=== PATIENT | female | born 1945 | race Caucasian/White ===

== ENCOUNTER → 2017-10-05 | Outpatient (CLI) | payer MEDICARE ==
[~2017-10-05] MED LIST: AUGMENTIN 875-1 EACH PO; CALCIUM500 M1 PO; FOLIC ACID1 MG PO; HYDROCHLOROTHIA25 M2 PO; HYDROCODON-ACE1 EAC8 PO; LIPITOR40 MG PO; LISINOPRIL20 MG PO; METHOTREXATE 22.5 MG PO; MULTIVITAMINS1 EAC7 PO; NORCO 5-325 TA1 EACH PO; NORVASC5 MG PO; OMEPRAZOLE40 MG PO; PERCOCET 5-3251 EACH PO; PRAMIPEXOLE DI0.5 MG PO; [UNRECOGNIZED DRUG - OTHER]
== END ==
LOC: M.WC 00:04
DX: T81.31XD Disruption of external operation (surgical) wound, not elsewhere classified, subsequent encounter (principal); M06.9 Rheumatoid arthritis, unspecified; K21.9 Gastro-esophageal reflux disease without esophagitis; E78.00 Pure hypercholesterolemia, unspecified; I10 Essential (primary) hypertension; M85.80 Other specified disorders of bone density and structure, unspecified site; Z96.651 Presence of right artificial knee joint; Y83.8 Other surgical procedures as the cause of abnormal reaction of the patient, or of later complication, without mention of misadventure at the time of the procedure

== ENCOUNTER → 2017-10-08 | Outpatient (CLI) | payer MEDICARE | LOC: M.WC 02:21 | DX: T81.31XD Disruption of external operation (surgical) wound, not elsewhere classified, subsequent encounter (principal); M06.9 Rheumatoid arthritis, unspecified; K21.9 Gastro-esophageal reflux disease without esophagitis; E78.00 Pure hypercholesterolemia, unspecified; I10 Essential (primary) hypertension; Z90.710 Acquired absence of both cervix and uterus; Y83.8 Other surgical procedures as the cause of abnormal reaction of the patient, or of later complication, without mention of misadventure at the time of the procedure ==

== ENCOUNTER → 2017-10-12 | Outpatient (CLI) | payer MEDICARE | LOC: M.WC 01:51 | DX: T81.31XD Disruption of external operation (surgical) wound, not elsewhere classified, subsequent encounter (principal); M06.9 Rheumatoid arthritis, unspecified; K21.9 Gastro-esophageal reflux disease without esophagitis; E78.00 Pure hypercholesterolemia, unspecified; I10 Essential (primary) hypertension; Z90.710 Acquired absence of both cervix and uterus; Y83.8 Other surgical procedures as the cause of abnormal reaction of the patient, or of later complication, without mention of misadventure at the time of the procedure ==

== ENCOUNTER → 2017-10-15 | Outpatient (CLI) | payer MEDICARE | LOC: M.WC 01:20 | DX: T81.31XD Disruption of external operation (surgical) wound, not elsewhere classified, subsequent encounter (principal); I10 Essential (primary) hypertension; E78.00 Pure hypercholesterolemia, unspecified; M06.9 Rheumatoid arthritis, unspecified; K21.9 Gastro-esophageal reflux disease without esophagitis; Z96.651 Presence of right artificial knee joint; Z90.710 Acquired absence of both cervix and uterus; Y83.8 Other surgical procedures as the cause of abnormal reaction of the patient, or of later complication, without mention of misadventure at the time of the procedure ==

== ENCOUNTER → 2017-10-19 | Outpatient (CLI) | payer MEDICARE | LOC: M.WC 01:32 | DX: T81.31XD Disruption of external operation (surgical) wound, not elsewhere classified, subsequent encounter (principal); I10 Essential (primary) hypertension; E78.00 Pure hypercholesterolemia, unspecified; K21.9 Gastro-esophageal reflux disease without esophagitis; M06.9 Rheumatoid arthritis, unspecified; Z96.651 Presence of right artificial knee joint; Z90.710 Acquired absence of both cervix and uterus; Y83.8 Other surgical procedures as the cause of abnormal reaction of the patient, or of later complication, without mention of misadventure at the time of the procedure ==

== ENCOUNTER → 2017-10-22 | Outpatient (CLI) | payer MEDICARE | LOC: M.WC 01:35 | DX: T81.31XD Disruption of external operation (surgical) wound, not elsewhere classified, subsequent encounter (principal); M06.9 Rheumatoid arthritis, unspecified; K21.9 Gastro-esophageal reflux disease without esophagitis; E78.00 Pure hypercholesterolemia, unspecified; I10 Essential (primary) hypertension; M81.0 Age-related osteoporosis without current pathological fracture; Z96.651 Presence of right artificial knee joint; Z90.710 Acquired absence of both cervix and uterus; Y83.8 Other surgical procedures as the cause of abnormal reaction of the patient, or of later complication, without mention of misadventure at the time of the procedure ==

== ENCOUNTER → 2017-10-26 | Outpatient (CLI) | payer MEDICARE | LOC: M.WC 01:55 | DX: T81.31XD Disruption of external operation (surgical) wound, not elsewhere classified, subsequent encounter (principal); I10 Essential (primary) hypertension; E78.00 Pure hypercholesterolemia, unspecified; M06.9 Rheumatoid arthritis, unspecified; K21.9 Gastro-esophageal reflux disease without esophagitis; Z96.651 Presence of right artificial knee joint; Z90.710 Acquired absence of both cervix and uterus; Y83.8 Other surgical procedures as the cause of abnormal reaction of the patient, or of later complication, without mention of misadventure at the time of the procedure ==

== ENCOUNTER → 2017-10-29 | Outpatient (CLI) | payer MEDICARE | LOC: M.WC 01:51 | DX: T81.31XD Disruption of external operation (surgical) wound, not elsewhere classified, subsequent encounter (principal); I10 Essential (primary) hypertension; E78.00 Pure hypercholesterolemia, unspecified; N18.3 Chronic kidney disease, stage 3 (moderate); M06.9 Rheumatoid arthritis, unspecified; K21.9 Gastro-esophageal reflux disease without esophagitis; Z96.651 Presence of right artificial knee joint; Z90.710 Acquired absence of both cervix and uterus; Y83.8 Other surgical procedures as the cause of abnormal reaction of the patient, or of later complication, without mention of misadventure at the time of the procedure ==

== ENCOUNTER → 2017-11-02 | Outpatient (CLI) | payer MEDICARE | LOC: M.WC 01:43 | DX: T81.31XD Disruption of external operation (surgical) wound, not elsewhere classified, subsequent encounter (principal); M06.9 Rheumatoid arthritis, unspecified; K21.9 Gastro-esophageal reflux disease without esophagitis; E78.00 Pure hypercholesterolemia, unspecified; I10 Essential (primary) hypertension; M85.80 Other specified disorders of bone density and structure, unspecified site; Z96.651 Presence of right artificial knee joint; Z90.710 Acquired absence of both cervix and uterus; Y83.8 Other surgical procedures as the cause of abnormal reaction of the patient, or of later complication, without mention of misadventure at the time of the procedure ==

== ENCOUNTER → 2017-11-05 | Outpatient (CLI) | payer MEDICARE | LOC: M.WC 01:44 | DX: T81.31XD Disruption of external operation (surgical) wound, not elsewhere classified, subsequent encounter (principal); M06.9 Rheumatoid arthritis, unspecified; K21.9 Gastro-esophageal reflux disease without esophagitis; E78.00 Pure hypercholesterolemia, unspecified; I10 Essential (primary) hypertension; M85.80 Other specified disorders of bone density and structure, unspecified site; Z96.651 Presence of right artificial knee joint; Z90.710 Acquired absence of both cervix and uterus; Y83.8 Other surgical procedures as the cause of abnormal reaction of the patient, or of later complication, without mention of misadventure at the time of the procedure ==

== ENCOUNTER → 2017-11-09 | Outpatient (CLI) | payer MEDICARE | LOC: M.WC 05:24 | DX: T81.31XD Disruption of external operation (surgical) wound, not elsewhere classified, subsequent encounter (principal); M06.9 Rheumatoid arthritis, unspecified; K21.9 Gastro-esophageal reflux disease without esophagitis; I10 Essential (primary) hypertension; E78.00 Pure hypercholesterolemia, unspecified; Z90.710 Acquired absence of both cervix and uterus; Y83.8 Other surgical procedures as the cause of abnormal reaction of the patient, or of later complication, without mention of misadventure at the time of the procedure ==

== ENCOUNTER 2017-11-12 13:54 | Emergency (ER) | payer MEDICARE ==
[~2017-11-12] VITALS: Ht 162.6 cm; Wt 77.1 kg
[~2017-11-12 13:54] MED LIST changes: -AUGMENTIN 875-1 EACH PO; -NORCO 5-325 TA1 EACH PO; -PERCOCET 5-3251 EACH PO
[2017-11-12] MEDS ORDERED: PERCOCET 5-3251 EACH PO (14:31)
[2017-11-12 14:42] VITALS: BP 139/55
== END 2017-11-12 14:43 | disposition home or self-care (01) ==
LOC: M.ERS 13:54
DX: M47.817 Spondylosis without myelopathy or radiculopathy, lumbosacral region (principal); Z90.710 Acquired absence of both cervix and uterus; Z96.651 Presence of right artificial knee joint

== ENCOUNTER → 2017-11-12 | Outpatient (CLI) | payer MEDICARE | LOC: M.WC 01:31 | DX: T81.31XD Disruption of external operation (surgical) wound, not elsewhere classified, subsequent encounter (principal); I10 Essential (primary) hypertension; E78.00 Pure hypercholesterolemia, unspecified; M06.9 Rheumatoid arthritis, unspecified; K21.9 Gastro-esophageal reflux disease without esophagitis; Z96.651 Presence of right artificial knee joint; Z90.710 Acquired absence of both cervix and uterus; Y83.8 Other surgical procedures as the cause of abnormal reaction of the patient, or of later complication, without mention of misadventure at the time of the procedure ==

== ENCOUNTER → 2017-11-16 | Outpatient (CLI) | payer MEDICARE ==
[~2017-11-16] MED LIST changes: +AUGMENTIN 875-1 EACH PO; +NORCO 5-325 TA1 EACH PO; +PERCOCET 5-3251 EACH PO
== END ==
LOC: M.WC 01:20
DX: T81.31XD Disruption of external operation (surgical) wound, not elsewhere classified, subsequent encounter (principal); M06.9 Rheumatoid arthritis, unspecified; K21.9 Gastro-esophageal reflux disease without esophagitis; E78.00 Pure hypercholesterolemia, unspecified; I10 Essential (primary) hypertension; M85.80 Other specified disorders of bone density and structure, unspecified site; Z96.651 Presence of right artificial knee joint; Z90.710 Acquired absence of both cervix and uterus; Y83.8 Other surgical procedures as the cause of abnormal reaction of the patient, or of later complication, without mention of misadventure at the time of the procedure

== ENCOUNTER → 2017-11-19 | Outpatient (CLI) | payer MEDICARE | LOC: M.WC 00:56 | DX: T81.31XD Disruption of external operation (surgical) wound, not elsewhere classified, subsequent encounter (principal); I10 Essential (primary) hypertension; E78.00 Pure hypercholesterolemia, unspecified; K21.9 Gastro-esophageal reflux disease without esophagitis; M06.9 Rheumatoid arthritis, unspecified; Z96.651 Presence of right artificial knee joint; Z90.710 Acquired absence of both cervix and uterus; Y83.8 Other surgical procedures as the cause of abnormal reaction of the patient, or of later complication, without mention of misadventure at the time of the procedure ==

== ENCOUNTER → 2017-11-23 | Outpatient (CLI) | payer MEDICARE | LOC: M.WC 03:32 | DX: T81.31XD Disruption of external operation (surgical) wound, not elsewhere classified, subsequent encounter (principal); K21.9 Gastro-esophageal reflux disease without esophagitis; E78.00 Pure hypercholesterolemia, unspecified; I10 Essential (primary) hypertension; M06.9 Rheumatoid arthritis, unspecified; Z90.710 Acquired absence of both cervix and uterus; Y83.8 Other surgical procedures as the cause of abnormal reaction of the patient, or of later complication, without mention of misadventure at the time of the procedure ==

== ENCOUNTER → 2017-11-26 | Outpatient (CLI) | payer MEDICARE | LOC: M.WC 00:41 | DX: T81.31XD Disruption of external operation (surgical) wound, not elsewhere classified, subsequent encounter (principal); I10 Essential (primary) hypertension; E78.00 Pure hypercholesterolemia, unspecified; K21.9 Gastro-esophageal reflux disease without esophagitis; M06.9 Rheumatoid arthritis, unspecified; Z96.651 Presence of right artificial knee joint; Z90.710 Acquired absence of both cervix and uterus; Y83.8 Other surgical procedures as the cause of abnormal reaction of the patient, or of later complication, without mention of misadventure at the time of the procedure ==

== ENCOUNTER → 2017-11-30 | Outpatient (CLI) | payer MEDICARE | LOC: M.WC 02:44 | DX: T81.31XD Disruption of external operation (surgical) wound, not elsewhere classified, subsequent encounter (principal); I10 Essential (primary) hypertension; E78.00 Pure hypercholesterolemia, unspecified; K21.9 Gastro-esophageal reflux disease without esophagitis; M06.9 Rheumatoid arthritis, unspecified; Z96.651 Presence of right artificial knee joint; Z90.710 Acquired absence of both cervix and uterus; Y83.8 Other surgical procedures as the cause of abnormal reaction of the patient, or of later complication, without mention of misadventure at the time of the procedure ==

== ENCOUNTER → 2017-12-01 | Outpatient (CLI) | payer MEDICARE | LOC: M.WC 10:00 | DX: T81.31XD Disruption of external operation (surgical) wound, not elsewhere classified, subsequent encounter (principal); M06.9 Rheumatoid arthritis, unspecified; I10 Essential (primary) hypertension; E78.00 Pure hypercholesterolemia, unspecified; K21.9 Gastro-esophageal reflux disease without esophagitis; Z96.651 Presence of right artificial knee joint; Z90.710 Acquired absence of both cervix and uterus; Y83.8 Other surgical procedures as the cause of abnormal reaction of the patient, or of later complication, without mention of misadventure at the time of the procedure ==

== ENCOUNTER → 2017-12-03 | Outpatient (CLI) | payer MEDICARE | LOC: M.WC 01:34 | DX: T81.31XD Disruption of external operation (surgical) wound, not elsewhere classified, subsequent encounter (principal); I10 Essential (primary) hypertension; K21.9 Gastro-esophageal reflux disease without esophagitis; E78.00 Pure hypercholesterolemia, unspecified; M06.9 Rheumatoid arthritis, unspecified; Z96.651 Presence of right artificial knee joint; Z90.710 Acquired absence of both cervix and uterus; Y83.8 Other surgical procedures as the cause of abnormal reaction of the patient, or of later complication, without mention of misadventure at the time of the procedure ==

== ENCOUNTER → 2017-12-07 | Outpatient (CLI) | payer MEDICARE | LOC: M.WC 02:24 | DX: T81.31XD Disruption of external operation (surgical) wound, not elsewhere classified, subsequent encounter (principal); M06.9 Rheumatoid arthritis, unspecified; K21.9 Gastro-esophageal reflux disease without esophagitis; E78.00 Pure hypercholesterolemia, unspecified; I10 Essential (primary) hypertension; Z90.710 Acquired absence of both cervix and uterus; Y83.8 Other surgical procedures as the cause of abnormal reaction of the patient, or of later complication, without mention of misadventure at the time of the procedure ==

== ENCOUNTER → 2017-12-10 | Outpatient (CLI) | payer MEDICARE | LOC: M.WC 01:50 | DX: T81.31XD Disruption of external operation (surgical) wound, not elsewhere classified, subsequent encounter (principal); I12.9 Hypertensive chronic kidney disease with stage 1 through stage 4 chronic kidney disease, or unspecified chronic kidney disease; N18.3 Chronic kidney disease, stage 3 (moderate); M06.9 Rheumatoid arthritis, unspecified; K21.9 Gastro-esophageal reflux disease without esophagitis; E78.00 Pure hypercholesterolemia, unspecified; Z90.710 Acquired absence of both cervix and uterus; Z96.652 Presence of left artificial knee joint; Y83.8 Other surgical procedures as the cause of abnormal reaction of the patient, or of later complication, without mention of misadventure at the time of the procedure ==

== ENCOUNTER → 2017-12-14 | Outpatient (CLI) | payer MEDICARE | LOC: M.WC 02:53 | DX: T81.31XD Disruption of external operation (surgical) wound, not elsewhere classified, subsequent encounter (principal); M06.9 Rheumatoid arthritis, unspecified; K21.9 Gastro-esophageal reflux disease without esophagitis; E78.00 Pure hypercholesterolemia, unspecified; I10 Essential (primary) hypertension; Z90.710 Acquired absence of both cervix and uterus; Y83.8 Other surgical procedures as the cause of abnormal reaction of the patient, or of later complication, without mention of misadventure at the time of the procedure ==

== ENCOUNTER → 2017-12-17 | Outpatient (CLI) | payer MEDICARE | LOC: M.WC 01:34 | DX: T81.31XD Disruption of external operation (surgical) wound, not elsewhere classified, subsequent encounter (principal); M06.9 Rheumatoid arthritis, unspecified; K21.9 Gastro-esophageal reflux disease without esophagitis; E78.00 Pure hypercholesterolemia, unspecified; I10 Essential (primary) hypertension; Z96.651 Presence of right artificial knee joint; Z90.710 Acquired absence of both cervix and uterus; Y83.8 Other surgical procedures as the cause of abnormal reaction of the patient, or of later complication, without mention of misadventure at the time of the procedure ==

== ENCOUNTER → 2017-12-21 | Outpatient (CLI) | payer MEDICARE | LOC: M.WC 00:29 | DX: T81.31XD Disruption of external operation (surgical) wound, not elsewhere classified, subsequent encounter (principal); K21.9 Gastro-esophageal reflux disease without esophagitis; E78.00 Pure hypercholesterolemia, unspecified; M06.9 Rheumatoid arthritis, unspecified; I10 Essential (primary) hypertension; Z90.710 Acquired absence of both cervix and uterus; Y83.8 Other surgical procedures as the cause of abnormal reaction of the patient, or of later complication, without mention of misadventure at the time of the procedure ==

== ENCOUNTER → 2017-12-28 | Outpatient (CLI) | payer MEDICARE | LOC: M.WC 01:40 | DX: T81.31XD Disruption of external operation (surgical) wound, not elsewhere classified, subsequent encounter (principal); I10 Essential (primary) hypertension; M06.9 Rheumatoid arthritis, unspecified; K21.9 Gastro-esophageal reflux disease without esophagitis; E78.00 Pure hypercholesterolemia, unspecified; Z90.710 Acquired absence of both cervix and uterus; Z96.652 Presence of left artificial knee joint; Y83.8 Other surgical procedures as the cause of abnormal reaction of the patient, or of later complication, without mention of misadventure at the time of the procedure ==

== ENCOUNTER → 2018-01-11 | Outpatient (CLI) | payer MEDICARE | LOC: M.WC 03:07 | DX: T81.31XD Disruption of external operation (surgical) wound, not elsewhere classified, subsequent encounter (principal); M06.9 Rheumatoid arthritis, unspecified; K21.9 Gastro-esophageal reflux disease without esophagitis; E78.00 Pure hypercholesterolemia, unspecified; I10 Essential (primary) hypertension; Z90.710 Acquired absence of both cervix and uterus; Y83.8 Other surgical procedures as the cause of abnormal reaction of the patient, or of later complication, without mention of misadventure at the time of the procedure ==

== ENCOUNTER → 2018-01-18 | Outpatient (CLI) | payer MEDICARE | LOC: M.WC 01:31 | DX: T81.31XD Disruption of external operation (surgical) wound, not elsewhere classified, subsequent encounter (principal); I10 Essential (primary) hypertension; E78.00 Pure hypercholesterolemia, unspecified; M06.9 Rheumatoid arthritis, unspecified; K21.9 Gastro-esophageal reflux disease without esophagitis; Z96.651 Presence of right artificial knee joint; Z90.710 Acquired absence of both cervix and uterus; Y83.8 Other surgical procedures as the cause of abnormal reaction of the patient, or of later complication, without mention of misadventure at the time of the procedure ==

== ENCOUNTER → 2018-01-25 | Outpatient (CLI) | payer MEDICARE | LOC: M.WC 02:08 | DX: T81.31XD Disruption of external operation (surgical) wound, not elsewhere classified, subsequent encounter (principal); M06.9 Rheumatoid arthritis, unspecified; K21.9 Gastro-esophageal reflux disease without esophagitis; E78.00 Pure hypercholesterolemia, unspecified; I10 Essential (primary) hypertension; Z90.710 Acquired absence of both cervix and uterus; Y83.8 Other surgical procedures as the cause of abnormal reaction of the patient, or of later complication, without mention of misadventure at the time of the procedure ==

== ENCOUNTER → 2018-01-31 | Outpatient (CLI) | payer MEDICARE | LOC: M.MRI 12:54 | DX: M47.895 Other spondylosis, thoracolumbar region (principal); M47.896 Other spondylosis, lumbar region; M48.04 Spinal stenosis, thoracic region; M48.061 Spinal stenosis, lumbar region without neurogenic claudication ==

== ENCOUNTER → 2018-02-01 | Outpatient (CLI) | payer MEDICARE | LOC: M.WC 03:33 | DX: T81.31XD Disruption of external operation (surgical) wound, not elsewhere classified, subsequent encounter (principal); I10 Essential (primary) hypertension; E78.00 Pure hypercholesterolemia, unspecified; K21.9 Gastro-esophageal reflux disease without esophagitis; M06.9 Rheumatoid arthritis, unspecified; Z96.651 Presence of right artificial knee joint; Z90.710 Acquired absence of both cervix and uterus; Y83.8 Other surgical procedures as the cause of abnormal reaction of the patient, or of later complication, without mention of misadventure at the time of the procedure ==

== ENCOUNTER → 2018-02-08 | Outpatient (CLI) | payer MEDICARE ==
--- NOTE | 2018-02-15 10:23 | PAINCON ---
[address] [address] PAIN MANAGEMENT CONSULTATION Name: REGAN PERALTA [facility] [id number] Admission: 02/08/18 Attend Phys: Natalie Silvestre MD Discharge: Date of : 49 Report #: [id number] THIS REPORT FOR: //name// CC: Dru Silvestre DATE OF SERVICE: 02/08/2018 CHIEF COMPLAINT: Pain and discomfort down into the low back area and buttocks and into both legs. HISTORY OF PRESENT ILLNESS: The patient is a 72-year-old female who has been referred to the pain clinic for evaluation of back and leg pain. States that she has been having pain and discomfort for quite a number of years. She has noticed that over the years, it has continued to worsen. She rates it as a 9/10 in the past year, but now it is risen to a 10+. She has limited ability to engage in activities of daily living. Notes that the pain radiates down into both legs. She is unable to stand for any significant length of time. She is limited in her ability to walk from her car to our office before onset of pain and cramping discomfort down into her legs, which caused her to stop. Once she stops and rests, things improved. When she goes shopping, notes that if she uses cart, she leans on the cart and is able to get more done. Notes that in the kitchen, she sits on a stool because of worsening of pain if she stands erect. The patient states that she did have a dorsal column stimulator placed in June 2017, this was helpful. Unfortunately, she started to notice some pain. She then had to have the stimulator removed secondary to infection. She has been treated with antibiotics. Still states that there is some healing that has not resolved in her back. She is being followed by a Wound Clinic. She notes that sleeping with a pillow between her legs can be somewhat helpful. She is experiencing pain, which is radiating down into the anterior portion of her left thigh. She uses a walker to help ambulate and get around. Denies any new bowel or bladder dysfunction. Has been using hydrocodone 7.5 mg. She tried oxycodone and did not feel that this medication was as efficacious as hydrocodone. She has tried a fentanyl patch. The patient states that she is going to see Dr. Brennen Holt in the near future, but has not seen a surgeon in regards to her back problems. ALLERGIES: No known drug allergies. MEDICATIONS: Norvasc 5 mg daily, Lipitor 40 mg, calcium 500 mg chewable, folic acid 1 mg tablet, hydrochlorothiazide 25 mg, hydrocodone/acetaminophen 7.5 mg, lisinopril 20 mg daily, methotrexate 2.5 mg weekly, multivitamin, omeprazole, pramipexole 0.5 mg, [place] [address] PAIN MANAGEMENT CONSULTATION Name: REGAN PERALTA Room: [facility] Kidd#: [id number] Admission: 02/08/18 Attend Phys: Natalie Silvestre MD Discharge: Date of : 47 Report #: [id number] PAST MEDICAL HISTORY: Right knee replacement, hysterectomy, carpal tunnel, appendectomy, chronic kidney disease stage 3, gastroesophageal reflux, hypercholesterolemia, hypertension, osteopenia, restless leg syndrome, rheumatoid arthritis with rheumatoid factor, multiple sites and organ systems. 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 REVIEW OF SYSTEMS: Fatigue, weakness, decreased appetite, hearing loss/ringing in the ears, shortness of breath, palpitations, awakens at night to urinate, changes in the hair and nails, numbness and tingling sensation in the lower extremities down into her legs, slowly heal. LABORATORY DATA: MRI of the lumbar spine dated 01/31/2018: 1. T12-L1, disk space narrowing and circumferential bulge with effacement of the ventral thecal sac. There is no central canal or significant neural foraminal stenosis. 2. L1-L2, disk space narrowing and disk desiccation with posterior disk bulging. There is effacement of the ventral thecal sac. The AP diameter of the central canal is 12 mm. There is bilateral degenerative facet disease and fluid-like signal intensity in the left facet. There is severe left-sided neural foraminal stenosis with effacement of the exiting L1 nerve root. 3. L2-L3, disk space narrowing and disk desiccation. There is 6 mm of grade 1 anterolisthesis. There is a chronic Schmorl's node in the superior endplate of L3. There is advanced bilateral hypertrophic degenerative facet disease. This is greater on the left. There is left lateral recess narrowing. The AP diameter of the central canal is narrowed to 8.5 mm. There is severe left-sided neural foraminal narrowing with flattening and effacement of the exiting L2 nerve root. 4. L3-L4, degenerative disk disease with disk space narrowing and disk desiccation. There is a vacuum disk phenomena. Modic type 1 changes are present in both endplates. There is fluid signals in both facet joints and advance bilateral facet arthrosis. There is a 5 mm right-sided intraspinal synovial cyst. This is best seen on the axial image. There is severe spinal stenosis with narrowing of the central canal to approximately 5 mm. There is severe bilateral neural foraminal stenosis, left greater than right with flattening and effacement of the exiting L3 nerve root. 5. L4-L5, disk space narrowing and disk desiccation with grade 1 spondylolisthesis measuring 11 mm. There is advanced bilateral hypertrophic facet arthrosis with intraspinal spurring. There is marked central canal stenosis measuring 6 mm AP to the posterior by 8 mm transverse posterior to the L4 vertebral body. There is posterior disk bulging extending posterior to the L4 vertebral body. There is severe right-sided neural foraminal narrowing with effacement and flattening of the exiting L4 nerve root. 6. L5-S1. No significant disk bulge or protrusions. There is bilateral degenerative facet disease with a small amount of fluid signal [place] [address] PAIN MANAGEMENT CONSULTATION Name: REGAN PERALTA Room: [facility]#: [id number] Admission: 02/08/18 Attend Phys: Natalie Silvestre MD Discharge: Date of : 47 Report #: [id number] PAIN CLINIC ASSESSMENT: 1. History of osteoarthritis changes in the low back as well as rheumatoid arthritis. 2. Height 5 feet 3 inches. Weight 166 pounds, BMI is 29. 3. Vital signs: Blood pressure 159/66, heart rate 64, respiratory rate 16, room air saturation 99%, temperature 98.2. 4. Pain intensity 10/10. 5. Fall risk. The patient has not fallen in the last 3 months. 6. The patient on blood thinner. The patient is not on a blood thinner. 7. History of hypertension. The patient is being treated for hypertension. 8. Opioid therapy greater than 6 weeks. The patient is on an opioid regimen on a regular basis. 9. Risk assessment tool. 10. Functional assessment tool. 11. Recreational drug use. The patient denies use of recreational drugs. 12. Tobacco: The patient denies use of tobacco. 13. Alcohol. The patient denies frequent use of alcoholic beverages. PHYSICAL EXAMINATION: GENERAL: The patient is a well-developed white female. She appears her stated age. The patient is alert and oriented x 3. Affect is appropriate. Speech is fluent. HEENT: Normocephalic, atraumatic. Extraocular eye muscles intact. Sclerae nonicteric. Hearing is within normal limits. NECK: Supple with no masses. Nontender. Good range of motion. HEART: Regular rate and rhythm without murmur. LUNGS: No respiratory distress. Breath sounds normal. No wheezing or rhonchi. ABDOMEN: Soft, nontender. BACK: The patient does have a bandage over the site of the dorsal column stimulator, does not appear to be any significant exudate or drainage from this area. EXTREMITIES: Upper extremities is judged to be 5/5 for the major muscle groups in the upper extremities. Lower extremities 4+/5 for the major muscle groups in the lower extremities. Prolonged standing causes worsening of pain and discomfort with pain that radiates down to the patient's legs. IMPRESSION: The patient with chronic pain in the lumbar area with pain, which is quite problematic and limiting her ability to participate in activities of daily living. MRI showing significant problems with spinal stenosis in the low back area. The patient states that she was going to see Dr. Brennen Holt, in the future. She is taking opioid medications. She has tried fentanyl, oxycodone, and at this juncture is using hydrocodone without significant improvement in her pain. She rates her pain as a 10/10. We reviewed her MRI with her. She could see the degenerative changes in her low back area. Given that she has such a significant amount of arthritic changes in her low back with areas which was [address] [place] [address] PAIN MANAGEMENT CONSULTATION Name: REGAN PERALTA Room: [facility].#: [id number] Admission: 02/08/18 Attend Phys: Natalie Silvestre MD Discharge: Date of : 47 Report #: [id number] narrow as 5 mm. RECOMMENDATIONS: We have discussed possible complication of the injection. Possibility of exacerbating her discomfort just simply from the mechanics/hydraulics of doing the injection might worsen her condition. I think she should see a neurosurgeon as soon as possible. We have called Dr. Holt's office to see whether or not she can be seen at the earliest convenience. Again, the patient finds that hydrocodone is helpful. We may consider use of methadone in the future. We would like to thank you for letting us participate in her care. We hope she continues to improve. <ELECTRONICALLY SIGNED> By: Natalie Silvestre MD 02/15/18 1023 1337 Emilia. Lit Silvestre MD /[facility]
== END ==
LOC: M.PC 03:55
DX: M47.26 Other spondylosis with radiculopathy, lumbar region (principal); F11.90 Opioid use, unspecified, uncomplicated

== ENCOUNTER → 2018-02-08 | Outpatient (CLI) | payer MEDICARE | LOC: M.WC 03:59 | DX: T81.31XD Disruption of external operation (surgical) wound, not elsewhere classified, subsequent encounter (principal); M06.9 Rheumatoid arthritis, unspecified; K21.9 Gastro-esophageal reflux disease without esophagitis; E78.00 Pure hypercholesterolemia, unspecified; I10 Essential (primary) hypertension; Z90.710 Acquired absence of both cervix and uterus; Y83.8 Other surgical procedures as the cause of abnormal reaction of the patient, or of later complication, without mention of misadventure at the time of the procedure ==

== ENCOUNTER → 2018-02-22 | Outpatient (CLI) | payer MEDICARE | LOC: M.WC 02:10 | DX: T81.31XD Disruption of external operation (surgical) wound, not elsewhere classified, subsequent encounter (principal); M06.9 Rheumatoid arthritis, unspecified; K21.9 Gastro-esophageal reflux disease without esophagitis; E78.00 Pure hypercholesterolemia, unspecified; I10 Essential (primary) hypertension; Y83.8 Other surgical procedures as the cause of abnormal reaction of the patient, or of later complication, without mention of misadventure at the time of the procedure ==

== ENCOUNTER → 2018-03-08 | Outpatient (CLI) | payer MEDICARE | LOC: M.WC 01:46 | DX: T81.31XD Disruption of external operation (surgical) wound, not elsewhere classified, subsequent encounter (principal); I10 Essential (primary) hypertension; K21.9 Gastro-esophageal reflux disease without esophagitis; E78.00 Pure hypercholesterolemia, unspecified; M06.9 Rheumatoid arthritis, unspecified; Z96.651 Presence of right artificial knee joint; Z90.710 Acquired absence of both cervix and uterus; Y83.8 Other surgical procedures as the cause of abnormal reaction of the patient, or of later complication, without mention of misadventure at the time of the procedure ==

== ENCOUNTER → 2018-03-15 | Outpatient (CLI) | payer MEDICARE | LOC: M.WC 00:35 | DX: T81.31XD Disruption of external operation (surgical) wound, not elsewhere classified, subsequent encounter (principal); I10 Essential (primary) hypertension; E78.00 Pure hypercholesterolemia, unspecified; K21.9 Gastro-esophageal reflux disease without esophagitis; M06.9 Rheumatoid arthritis, unspecified; Z96.651 Presence of right artificial knee joint; Z90.710 Acquired absence of both cervix and uterus; Y83.8 Other surgical procedures as the cause of abnormal reaction of the patient, or of later complication, without mention of misadventure at the time of the procedure ==

== ENCOUNTER 2018-07-10 07:25 | Emergency (ER) | payer MEDICARE ==
[~2018-07-10] VITALS: Ht 162.6 cm; Wt 77.1 kg
[~2018-07-10 07:25] MED LIST changes: -AUGMENTIN 875-1 EACH PO; -NORCO 5-325 TA1 EACH PO
[2018-07-10 07:54] LABS: HEMATOCRIT 38.6 % (37.0-47.0); HEMOGLOBIN 12.8 gm/dL (12.0-15.0); MCHC 33.1 g/dL (28.0-37.0); MCV 102.8 fL (80.0-100.0); MPV 9.4 fl. (7.2-11.1); NUCLEATED RBCS 0 /100WBC; PLATELET COUNT* 273 thou/uL (150-400); RBC 3.75 mil/uL (4.20-5.00); RDW-CV 13.4 % (10.5-14.5); WBC 22.9 thou/uL (4.0-11.0)
[2018-07-10 08:01] LABS: APTT 23.6 Seconds (25.0-31.3); PROTIME 10.2 Seconds (9.20-11.50)
[2018-07-10 08:04] LABS: CALCIUM 8.9 mg/dL (8.5-10.1); CREATININE 1.8 mg/dL (0.6-1.3); POTASSIUM 3.9 mmol/L (3.5-5.1)
[2018-07-10 08:09] LABS: TOTAL BILIRUBIN 0.5 mg/dL (<0.1-1.0); TOTAL PROTEIN 6.7 g/dL (6.4-8.2)
[2018-07-10 08:20] LABS: ABSOLUTE LYMPHOCYTES 1.1 thou/uL (0.8-5.3); ABSOLUTE MONOCYTES 0.5 thou/uL (0.0-1.2); ABSOLUTE NEUTROPHILS 21.3 thou/uL (1.6-8.1); ANISOCYTOSIS 1+; PLATELET ESTIMATE ADEQUATE; POIKILOCYTOSIS 1+
[2018-07-10] MEDS ORDERED: AUGMENTIN 875-1 EACH PO (09:50)
[2018-07-10] MEDS ORDERED: NORCO 5-325 TA1 EACH PO (09:50)
[2018-07-10 09:58] VITALS: BP 132/52
== END 2018-07-10 09:58 | disposition home or self-care (01) ==
LOC: M.ERS 07:25
PROVIDERS: Family Medicine
DX: L03.221 Cellulitis of neck (principal); Z90.710 Acquired absence of both cervix and uterus; Z90.49 Acquired absence of other specified parts of digestive tract; Z96.651 Presence of right artificial knee joint

== ENCOUNTER 2019-11-08 12:04 | Inpatient (IN) | payer MEDICARE ==
[~2019-11-08] VITALS: Ht 160 cm; Wt 80.1 kg
--- NOTE | ~2019-11-08 | CON ---
[address] [address] CONSULTATION Name: REGAN PERALTA Room: [address] IN M.R.#: [id number] Admission: 11/08/19 Attend Phys: Princess Stewart Discharge: Date of : 47 Report #: [id number] THIS REPORT FOR: //name// cc: MARY DANIELS MD, HEATHER L. MD ~ THIS REPORT FOR: //name// CC: Princess Carmen DATE OF SERVICE: 11/09/2019 CARDIOLOGY CONSULTATION HISTORY OF PRESENT ILLNESS: I was asked by Dr. Princess Bynum to see this 74-year-old white female in cardiology consultation for an elevated troponin. This lady came in yesterday to the Emergency Room with abdominal pain. Her troponins were initially 0.07 and then subsequently 0.09 and 0.09. She never had any chest pain, she said. She never had any shortness of breath. She did, however, have a coronary stent placed at [facility] on 10/29/2019 of this year. Apparently, it was in the LAD. We do not have records yet, but she told me it was in this artery on the front of the heart. That was not placed for chest pain. It was placed for syncope apparently. This lady had surgery on her back earlier in the month. She then at home had an episode of syncope, was taken back to , and had a workup there and ultimately resulted in a coronary stent. Sometime during that hospitalization also, though she does not remember when she began having abdominal pain, she says she did not have abdominal pain before she had syncope. She is not sure that she had abdominal pain before or after the stent, but she did complain of it to the staff but nothing was done about it. Her abdominal pain has become progressively worse. She now comes in with what looks like on the CT is of a probable small bowel ischemia. Inflammatory bowel disease cannot be excluded. The CT shows a long loop of distal small bowel with marked wall thickening measuring up to 8 mm. There was mesenteric edema, stranding, and small amount of free fluid. There was no clearcut closed loop obstruction, although it could not be excluded. The proximal bowel was nondistended without definite evidence of obstruction. It was felt that this finding could represent inflammatory bowel disease, although ischemia also could not be excluded. So, an infection or infiltrate can also give this appearance as well. She has continued to have bowel movements. She has had 2 bowel movements today. She had a bowel movement every day for the last couple of weeks. She does not remember a day in which she has not had a bowel movement. She is being evaluated for her abdominal process. She is to see a surgeon and possibly GI. This lady does have a history of hypercholesterolemia and essential hypertension. She does not smoke. She never smoked. She does not have diabetes. There is a family history of coronary artery disease. She has not had renal disease. She apparently says she has had a bruit in her neck. She has never had a stroke or TIA, however. She has had no chest pain. She has had no further syncope. She denies dyspnea on exertion, shortness of breath at rest, orthopnea, or PND. Occasionally, she gets a little edema. She has never been told that she has heart failure. I do not know what her LV function said and we are attempting to get records. PAST MEDICAL HISTORY: Essentially as described above. HOME MEDICATIONS: Include aspirin 81 mg daily, atorvastatin 40 mg daily, Plavix 75 mg daily, Lasix 40 mg daily, metoprolol succinate 25 mg daily, MS Contin 15 mg b.i.d., oxycodone 5 mg q. 3 hours p.r.n. and presumably all that is for back pain, potassium 20 mEq daily, Mirapex 2 gm at bedtime, and tizanidine 4 mg at bedtime. ALLERGIES: She has no known allergies. REVIEW OF SYSTEMS: Positive for sputum production and vomiting. She vomited once a day before she came in here. She has seasonal allergies, arthritis, and wears glasses. Otherwise, review of systems is negative for some 40 different complaints in 14 different system categories including central nervous system, general, respiratory, cardiovascular, endocrine, gastrointestinal, genitourinary, hematologic, lymphatic, allergic, immunologic, psychiatric, musculoskeletal, skin, eyes, ears, nose, mouth, and throat. Please see review of systems form for details and negatives in review of systems. SOCIAL HISTORY: She is . 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 She does not smoke, drink, or use illegal drugs. FAMILY HISTORY: Her mother had severe heart problems. She has a sister with cancer and a brother with diabetes. PHYSICAL EXAMINATION: GENERAL: She presents as a well-developed and well-nourished white female, in no acute distress. VITAL SIGNS: Pulse was 69 and regular, blood pressure is 135/45, respirations are 17 and regular, and temperature is 98.4. HEENT: Head was atraumatic. Eyes clear. NECK: Supple. There is no jugular venous distention or hepatojugular reflux. Thyroid is not enlarged. There is no adenopathy. SKIN: Warm and dry. Mucous membranes are moist. LUNGS: Clear to auscultation and percussion. HEART: Revealed normal first and second heart sounds. There is soft S4. There is no S3. There are no murmurs, rubs, thrills, heaves, or gallops. PMI is nondisplaced. ABDOMEN: Soft, flat, and mildly tender in the mid abdomen. There was no rebound or guard. There was no rigidity. Bowel sounds were absent. There are no palpable masses. There is no organomegaly. EXTREMITIES: Reveal no cyanosis, clubbing, or edema. NEUROLOGIC: The patient talked normally and mentated normally. LABORATORY DATA: Her EKG showed normal sinus rhythm. There is a probable incomplete left bundle branch block versus an old anteroseptal NE with an IVCD. There were significant T-wave inversions in V2, V3, V4, V5, and V6. We will attempt to get an old EKG. Her BNP was not obtained. Her CPK was 49. I do not see a chest x-ray. IMPRESSION: 1. Elevated troponin which is likely noncardiac. This is likely a type 2 event related to her severe abdominal pain. However, a coronary event cannot be excluded in spite of this minimal elevation. 2. Coronary artery disease. 3. Status post recent coronary stent. 4. Hypercholesterolemia. 5. Essential hypertension. 6. Small bowel ischemia. RECOMMENDATION: I suspect that this lady has had mesenteric artery embolized with either cholesterol embolus or a thrombotic embolus during her catheterization. She needs surgical consultation and GI consultation. We will get an echo and I will await results of her records. Additionally, we will get a chest x-ray and a BNP. Thank you very much for asking me to see the patient. If there are any questions, please feel free to contact me. By: [id number]. Rishabh Oropeza MD, FACC /nt
[~2019-11-08 12:04] MED LIST changes: +AUGMENTIN 875-1 EACH PO; +NORCO 5-325 TA1 EACH PO
[2019-11-08 12:17] VITALS: BP 155/50
[2019-11-08 13:07] LABS: HEMATOCRIT 27.4 % (37.0-47.0); HEMOGLOBIN 9.3 gm/dL (12.0-15.0); MCH 33.1 pg (26.0-34.0); MCV 97.6 fL (80.0-100.0); MPV 7.8 fl. (7.2-11.1); NUCLEATED RBCS 0 /100WBC; PLATELET COUNT* 410 thou/uL (150-400); RBC 2.81 mil/uL (4.20-5.00); RDW-CV 17.1 % (10.5-14.5); WBC 12.7 thou/uL (4.0-11.0)
[2019-11-08 13:15] LABS: INR 1.1; PROTIME 11.1 Seconds (9.20-11.50)
[2019-11-08 13:16] LABS: CALCIUM 7.8 mg/dL (8.5-10.1); CREATININE 0.8 mg/dL (0.6-1.3); POTASSIUM 3.4 mmol/L (3.5-5.1)
[2019-11-08 13:20] LABS: ALBUMIN 2.1 g/dL (3.4-5.0); TOTAL BILIRUBIN 0.5 mg/dL (<0.1-1.0); TOTAL PROTEIN 5.3 g/dL (6.4-8.2)
[2019-11-08 13:26] LABS: ABSOLUTE LYMPHOCYTES 0.5 thou/uL (0.8-5.3); ABSOLUTE NEUTROPHILS 12.2 thou/uL (1.6-8.1); PLATELET ESTIMATE ADEQUATE
[2019-11-08 19:14] VITALS: BP 154/56
[2019-11-08 20:04] LABS: URINE BILIRUBIN NEGATIVE (Negative); URINE BLOOD NEGATIVE (Negative); URINE CLARITY CLEAR; URINE COLOR YELLOW; URINE GLUCOSE-RANDOM NEGATIVE (Negative); URINE KETONES 1+ (Negative); URINE LEUKOCYTES-REFLEX NEGATIVE (Negative); URINE PROTEIN NEGATIVE (Negative); URINE UROBILINOGEN 0.2 E.U./dl (0.2-1.0)
[2019-11-08 20:05] LABS: URINE NITRITE-REFLEX POSITIVE (Negative)
[2019-11-08 20:15] LABS: BACTERIA-REFLEX >30 Many /HPF (None Seen); CASTS None Seen /LPF (None Seen); CRYSTALS None Seen /LPF (None Seen); MUCUS 0-3 Light strn/LPF (None Seen); SQUAMOUS 0-3 Few /LPF (0-3); URINE RBC 3-10 Few /HPF (0-2); URINE WBC-REFLEX >25 Many /HPF (0-5); WBC CLUMPS Few (None Seen)
[2019-11-08 20:16] VITALS: BP 154/56
[2019-11-08 20:50] VITALS: BP 159/41
[2019-11-09] MEDS ORDERED: ASA81BEC PO (00:16)
[2019-11-09] MEDS ORDERED: PLAVIX 75 MG TA75 MG PO (00:18)
[2019-11-09] MEDS ORDERED: FUROSEMIDE 40 M40 M1 PO (00:18)
[2019-11-09] MEDS ORDERED: TOPROL XL25 MG PO (00:35)
[2019-11-09 00:37] VITALS: BP 130/43
[2019-11-09] MEDS ORDERED: MS CONTIN 30 MG30 M1 PO (00:37)
[2019-11-09] MEDS ORDERED: ROXICODONE5 M2 PO (00:38)
[2019-11-09] MEDS ORDERED: MIRAPEX1 MG PO (00:39)
[2019-11-09] MEDS ORDERED: TIZANIDINE HCL4 M1 PO (00:40)
[2019-11-09] MEDS ORDERED: KLOR-CON M2020 MEQ PO (01:13)
[2019-11-09 04:00] VITALS: BP 135/49
--- NOTE | 2019-11-09 04:56 | NUR ---
PATIENT PARTIALLY PROGRESSING TOWARDS GOALS: PAIN RELIEVED WITH MEDICATION PER MAR AND RELAXATION. PATIENT ABLE TO SLEEP AFTER ADMINSTRATION OF PAIN MEDICATION. PATIENT NPO FOR CARDIOLOGY CONSULT THIS AM, VERBALIZES UNDERSTANDING. CALL LIGHT WITHIN REACH.
[2019-11-09 08:00] VITALS: BP 147/48
[2019-11-09 10:39] LABS: ABSOLUTE EOSINOPHILS 0.1 thou/uL (0.0-0.7); ABSOLUTE LYMPHOCYTES 0.7 thou/uL (0.8-5.3); ABSOLUTE NEUTROPHILS 5.5 thou/uL (1.6-8.1); BASOPHILS 0.4 %; EOSINOPHILS 0.9 %; HEMATOCRIT 26.7 % (37.0-47.0); LYMPHOCYTES 10.1 %; MCH 33.1 pg (26.0-34.0); MCHC 33.6 g/dL (28.0-37.0); MCV 98.4 fL (80.0-100.0); MONOCYTES 13.3 %; MPV 7.6 fl. (7.2-11.1); NUCLEATED RBCS 0 /100WBC; PLATELET COUNT* 426 thou/uL (150-400); POLYS 75.3 %; RBC 2.72 mil/uL (4.20-5.00); RDW-CV 17.2 % (10.5-14.5); WBC 7.3 thou/uL (4.0-11.0)
[2019-11-09 11:05] LABS: CALCIUM 7.8 mg/dL (8.5-10.1); CREATININE 0.7 mg/dL (0.6-1.3); POTASSIUM 3.5 mmol/L (3.5-5.1)
[2019-11-09 11:09] LABS: ALBUMIN 2.1 g/dL (3.4-5.0); TOTAL BILIRUBIN 0.5 mg/dL (<0.1-1.0)
--- NOTE | 2019-11-09 12:00 | NUR ---
ASSUMED PT CARE AT 0800, AOX4, UP SBA, USES WALKER. O2 SAT 90'S RA. TRACING SR ON TELE. PT COMPLAINS OF ABDOMINAL PAIN. MEDS GIVEN WITH MILD RELIEVED. PT FOR CT ABDOMEN. GI AND GEN SURG CONSULTED. CARDIOLOGY SEEN THE PT. PT NPO. RIGHT AC IV NOTED IVF INFUSSING ORDERED. VSS, AM ASSESSMENT CHARTED, HOURLY ROUNDING, CALL LIGHT WITHIN REACH, WILL CONTINUE TO MONITOR.
[2019-11-09 12:58] VITALS: BP 148/45
--- NOTE | 2019-11-09 14:24 | 2DMMODE ---
[place] [address] 2 D/M-MODE ECHOCARDIOGRAM Name: REGAN PERALTA Room: [address] IN [facility]#: [id number] Admission: 11/08/19 Attend Phys: Princess cowan Sa Discharge: Date of : 47 Date of Service: 11/09/19 1423 Report #: [id number] THIS REPORT FOR: cc: MARY DANIELS MD, HEATHER L. MD Biggs, F. Douglas MD [facility] ~ APPROVED REPORT Study performed: 11/09/2019 10:59:59 EXAM: Comprehensive 2D, Doppler, and color-flow Echocardiogram Patient Location: In-Patient Room #: [facility] Status: routine BSA: 1.86 HR: 66 bpm BP: 147/48 mmHg Rhythm: NSR Other Information Study Quality: Good Indications CAD 2D Dimensions IVSd: 12.33 (7-11mm) LVOT Diam: 19.21 (18-24mm) LVDd: 46.94 mm PWd: 10.14 (7-11mm) Ascending Ao: 30.81 (22-36mm) LVDs: 30.19 (25-40mm) Aortic Root: 30.55 mm Volumes Left Atrial Volume (Systole) LA ESV Index: 29.30 mL/m2 Aortic Valve AoV Peak Ranjith.: 1.98 m/s AO Peak Gr.: 15.68 mmHg LVOT Max P.16 mmHg AO Mean Gr.: 7.38 mmHg LVOT Mean P.33 mmHg LVOT Max V: 1.34 m/s AO V2 VTI: 35.85 cm LVOT Mean V: 0.84 m/s ESSIE (VTI): 2.27 cm2 LVOT V1 VTI: 28.08 [place] [address] 2 D/M-MODE ECHOCARDIOGRAM Name: REGAN PERALTA Margie Room: [address]#: [id number] Admission: 11/08/19 Attend Phys: Princess cowan Sa Discharge: Date of : 49 Date of Service: 11/09/19 1423 Report #: [id number] Mitral Valve E/A Ratio: 1.10 MV Decel. Time: 234.13 ms MV E Max Ranjith.: 1.08 m/s MV PHT: 67.90 ms MVA (PHT): 3.24 cm2 TDI E/Lateral E': 9.00 E/Medial E': 12.00 Medial E' Ranjith.: 0.09 m/s Lateral E' Ranjith.: 0.12 m/s Pulmonary Valve PV Peak Ranjith.: 1.23 m/s PV Peak Gr.: 6.01 mmHg Tricuspid Valve RAP Estimate: 5.00 mmHg TR Peak Gr.: 38.96 mmHg RVSP: 43.00 mmHg PA Pressure: 43.00 mmHg Left Ventricle The left ventricle is normal size. There is normal LV segmental wall motion. There is normal left ventricular wall thickness. Left ventricular systolic function is normal. The left ventricular ejection fraction is within the normal range. LVEF is 60-65%. The left ventricular diastolic function is normal. Right Ventricle The right ventricle is normal size. The right ventricular systolic function is normal. Atria The left atrium size is normal. The right atrium size is normal. Aortic Valve Mild aortic valve sclerosis. No aortic regurgitation is present. There is no aortic valvular stenosis. Mitral Valve The mitral valve is normal in structure. Trace mitral regurgitation. No evidence of mitral valve stenosis. Tricuspid Valve The tricuspid valve is normal in structure. Mild tricuspid regurgitation. Moderate [place] [address] 2 D/M-MODE ECHOCARDIOGRAM Name: REGAN PERALTA Room: [address]#: [id number] Admission: 11/08/19 Attend Phys: Princess cowan Sa Discharge: Date of : 49 Date of Service: 11/09/19 1423 Report #: [id number] Pulmonic Valve The pulmonary valve is normal in structure. Trace pulmonic regurgitation. Great Vessels The aortic root is normal in size. IVC is normal in size and collapses >50% with inspiration. Pericardium There is no pericardial effusion. <Conclusion> LVEF is 60-65%. There is normal LV segmental wall motion. The left ventricular diastolic function is normal. Trace mitral regurgitation. Mild tricuspid regurgitation. Moderate pulmonary hypertension. Trace pulmonic regurgitation. <ELECTRONICALLY SIGNED> By: Thelma Oropeza MD, FACC 11/09/19 1423 1423 1423 Thelma Oropeza MD, FACC /INF
--- NOTE | 2019-11-09 14:42 | NUR ---
Pt is A&O. Resides at home with her dtr. Independent with ADLs, dtr completes IADLs. Pt has a walker for mobility. Pt is current with [facility], but states that she has not been home long enough to start service, plan dc to home with [facility]. No hx of SNF. Hx of acute rehab at . Following. [facility] p:[phone] f:[phone]
[2019-11-09 15:51] VITALS: BP 148/57
[2019-11-09 19:45] VITALS: BP 134/48
[2019-11-10] VITALS: BP 135/44
[2019-11-10 04:05] VITALS: BP 147/48
--- NOTE | 2019-11-10 06:48 | NUR ---
PATIENT PARTIALLY PROGRESSING TOWARDS GOALS: PAIN RELIEVED WITH PRN MEDICATIONS AND RELAXATION. PATIENT INCONTINENT OF LOOSE STOOL X1 THIS SHIFT. LUDY CARE PROVIDED AND PATIENT APPLIED CLEAN PAIR OF UNDERWEAR AND PAJAMA PANTS. PATIENT NPO AT THIS TIME. CALL LIGHT WITHIN REACH
[2019-11-10 08:00] VITALS: BP 168/72
[2019-11-10 09:23] LABS: HEMATOCRIT 28.2 % (37.0-47.0); HEMOGLOBIN 9.5 gm/dL (12.0-15.0); MCHC 33.6 g/dL (28.0-37.0); MCV 98.2 fL (80.0-100.0); MPV 7.8 fl. (7.2-11.1); RBC 2.87 mil/uL (4.20-5.00); RDW-CV 17.3 % (10.5-14.5); WBC 6.9 thou/uL (4.0-11.0)
[2019-11-10 09:39] LABS: CREATININE 0.9 mg/dL (0.6-1.3); MAGNESIUM 1.5 mg/dL (1.8-2.4); PHOSPHORUS* 3.8 mg/dL (2.5-4.9)
[2019-11-10 12:00] VITALS: BP 142/49
--- NOTE | 2019-11-10 14:34 | NUR ---
Plan continues to be to return home with dtr and [facility], H&P, facesheet and HH orders need to be faxed to [phone]
--- NOTE | 2019-11-10 16:13 | NUR ---
ASSUMED PT CARE AT 0800, AOX4, UP SBA, O2 SAT 90'S RA. TRACING SR ON TELE. PT COMPLAINS OF ABDMINAL PAIN. PAIN MEDS GIVEN WILD MILD RELIEF. PT ON HEATING PAD PRN. PT HAD EGD. PT FROM NPO ADVANCED TO HEART HEALTHY PROVIDER. PT FOR CTA CHEST. VSS, AM ASSESSMENT CHARTED. MEDS GIVEN PER MAR, CALL LIGHT WITHIN REACH, WILL CONTINUE TO MONITOR.
--- NOTE | 2019-11-10 19:44 | NUR ---
ASSUMED PT CARE AT 0800, AOX4, UP SBA WITH WALKER. O2 SAT 90'S RA. TRACING SR, PVC ON TELE. PT COMPLAINS OF PAIN, PAIN MEDS GIVEN ORDERED WITH PARTIAL RELIEF. PT HAD EGD. PT ADVANCED TO HEART HEALTHY DIET. PT HAD BM TODAY. PT FOR CTA CHEST. HOURLY ROUNDING, CALL LIGHT WITHIN REACH. GIVE REPORT TO MILES LARKIN.
[2019-11-10 19:50] VITALS: BP 147/52
[2019-11-10 23:53] VITALS: BP 132/52
--- NOTE | 2019-11-11 03:45 | NUR ---
ASSUMED CARE OF PT AT 1900. PT IS ALERT AND ORIENTED. PT IS HAVING FREQUENT LOOSE STOOLS. CDIFF SAMPLE SENT TO LAB. PT REPORTS SOME PAIN IN ABDOMAN. PT REIEVED DILAUDID. VSS. PERRLA. PT IS IN SINUS RYTHM ON THE TELEMETRY. PT IS RESTING COMFORTABLY IN BED. RESPIRATIONS ARE EVEN AND NONLABORED. WILL CONTINUE TO MONITOR PT.
[2019-11-11 04:02] VITALS: BP 146/52
[2019-11-11 07:30] VITALS: BP 157/49
[2019-11-11 09:54] LABS: HEMATOCRIT 24.9 % (37.0-47.0); HEMOGLOBIN 8.3 gm/dL (12.0-15.0); MCH 32.6 pg (26.0-34.0); MCHC 33.5 g/dL (28.0-37.0); MCV 97.3 fL (80.0-100.0); MPV 7.6 fl. (7.2-11.1); RBC 2.56 mil/uL (4.20-5.00); RDW-CV 17.4 % (10.5-14.5); WBC 5.5 thou/uL (4.0-11.0)
[2019-11-11 10:01] LABS: CALCIUM 7.6 mg/dL (8.5-10.1); CREATININE 0.7 mg/dL (0.6-1.3)
[2019-11-11 12:13] VITALS: BP 136/47
[2019-11-11] MEDS ORDERED: FLAGYL500 M1 PO (13:22)
[2019-11-11] MEDS ORDERED: PANTOPRAZOLE SO40 M1 PO (13:22)
[2019-11-11 14:30] VITALS: BP 136/47
--- NOTE | 2019-11-13 17:07 | PATH ---
[address] [address] PATHOLOGY RPT PROCEDURE Name: YESSICA FAN Room: [address] IN .R.#: [id number] Admission: 11/08/19 Date of : 49 Discharge: 11/11/19 Report #: [id number] Path Case #: [id number] [facility] Accession Number: [id number] . 01 Material submitted: . stomach - GASTRIC BIOPSY . 01 Clinical history: . None provided. . 02 Diagnosis: Gastric biopsy: - Mild nonspecific chronic gastritis, negative for Helicobacter pylori organisms and dysplasia. . (BHUPINDER:matt; 11/13/2019) . . Special stain: H. pylori immuno QMS 11/13/2019 1305 Local . 02 Electronically signed: . Paul Solis MD, Pathologist NPI- [id number] . 01 Gross description: . Received in formalin labeled "Yessica Fan, gastric biopsy rule out H. pylori" is a 0.5 x 0.4 x 0.1 cm aggregate of grajeda-brown soft tissue fragments. The specimen is submitted entirely in A1. ([facility]; 11/12/2019) [facility] 11/12/2019 1244 Local . 02 Pathologist provided ICD-10: K29.50 . 02 CPT . 650598, [id number] Specimen Comment: A courtesy copy of this report has been sent to [phone] Specimen Comment: [phone], Specimen Comment: Report sent to ,DR DANIELS / DR ADAN Performed at: [address], [place], [place] [id number] MD Harjit Bland MD Phone: [phone] Performed at: 02 [facility] [address], [place], [place] [id number] MD Paul Solis MD Phone: [phone]
[2019-11-14 10:36] VITALS: BP 136/47
--- NOTE | 2019-11-14 10:42 | NUR ---
FAXED FS,H&P,DC ORDERS,SUMMARY AND THERAPY NOTES TO JESSE ([facility]) HOME HEALTH SPOKE TO PAUL AT [phone] WHO WANTED UPDATE ON PATIENT AND FAX INFORMATION TO [phone].
--- NOTE | 2019-11-14 12:24 | CON ---
[address] [address] CONSULTATION Name: REGAN PERALTA Room: [address] IN M.R.#: [id number] Admission: 11/08/19 Attend Phys: Princess Stewart Discharge: 11/11/19 Date of : 49 Report #: [id number] THIS REPORT FOR: //name// cc: MARY DANIELS MD, HEATHER L. MD ~ THIS REPORT FOR: //name// CC: Princess Cook MD DICTATED BY: Peyton Baird [facility] DATE OF SERVICE: 11/10/2019 Please note at the time of this dictation, the patient was seen and physically examined by myself. REASON FOR CONSULTATION: Upper abdominal pain, epigastric, a little nausea, and some dysphagia. The patient began having some epigastric abdominal pain. She states that was sharp and stabbing in nature, that has been coming and going. She has had a decrease in her appetite and noticed a little bit of her stools being loose. She has been having some nausea associated with this. She states that this all kind of started in the end of October. The patient was discharged from at that time for recent back surgery and had a stent placement, in which she was placed on Plavix at that time. She denies any hematemesis. She has not noticed any bright red blood or melanotic stool and her bowels have been going once a day and this is new to be somewhat loose. The patient also complains that she has had some intermittent dysphagia that she has noted for some time. The patient was last seen by us back in 2017. She underwent an EGD and colonoscopy. EGD showed chronic gastritis, negative for H. pylori. Her colonoscopy done at that time showed nonbleeding internal hemorrhoids. ALLERGIES: No known drug allergies. MEDICATIONS FROM HOME: Include: 1. Lipitor. 2. Aspirin. 3. Plavix. 4. Lasix. 5. Toprol. 6. MS Contin. 7. Roxicodone. 8. Mirapex. 9. Tizanidine. 10[place] [address] CONSULTATION Name: REGAN PERALTA Room: [address]#: [id number] Admission: 11/08/19 Attend Phys: Princess Stewart Discharge: 11/11/19 Date of : 49 Report #: [id number] PAST MEDICAL HISTORY: 1. Coronary artery disease. 2. Hypertension. 3. Hyperlipidemia. 4. Chronic back pain. PAST SURGICAL HISTORY: 1. Hysterectomy. 2. Appendectomy. 3. Right knee replacement. 4. Carpal tunnel. 5. Back surgery, the first of October of this year, as well as a stent placed at the end of October over at . FAMILY HISTORY: Negative for any GI. However, she has a half-sister with breast cancer. SOCIAL HISTORY: Lives with family. Denies any alcohol, tobacco or illegal drug use. REVIEW OF SYSTEMS: Twelve-point review of systems is essentially negative except what is mentioned in the HPI. PHYSICAL EXAMINATION: VITAL SIGNS: Temperature 36.7, pulse 70, respirations 20, blood pressure 168/72. HEART: Regular rate and rhythm. LUNGS: Clear. ABDOMEN: Soft. Positive bowel sounds in all 4 quadrants with tenderness noted in the upper quadrant. LABORATORY DATA: Hemoglobin 9.5, white count is 6.9, platelets 493. Potassium is 3. GFR is 62. Her BNP was elevated on admission at 10,579. IMAGING: CT of the abdomen and pelvis showed thickening of the distal small bowel at the distal ileum about 10 mm. Wall thickening noted at the cecum with some moderate edema noted and a distended gallbladder. Also noted is some calcification of the SMA artery. IMPRESSION: 1. Epigastric and upper abdominal discomfort. History of chronic gastritis. 2. Nausea. 3. Dysphagia. 4. Abnormal CT. Thickening of the distal small bowel at the distal ileum. 5. Anticoagulant therapy. [place] [address] CONSULTATION Name: REGAN PERALTA Room: [address] [place] M.R.#: [id number] Admission: 11/08/19 Attend Phys: Princess cowan [place] Discharge: 11/11/19 Date of : 49 Report #: [id number] 6. Family history of breast cancer. PLAN: 1. EGD today with Dr. Chapmna. 2. Further recommendations to be made once the procedure has been performed. Thank you for allowing us to participate in this patient's care. Please do not hesitate to call with any questions in regard to this consult. Agree with above assessment and plan by Peyton Baird <ELECTRONICALLY SIGNED> By: Nathan Chapman MD 11/14/19 1224 1103 1341Nathan Chapman MD /nt
--- NOTE | 2019-11-15 13:54 | EKG ---
[place] [address] ELECTROCARDIOGRAM REPORT Name: REGAN PERALTA Room: [address]#: [id number] Admission: 11/08/19 Attend Phys: Princess cowan Sa Discharge: 11/11/19 Date of : 49 Date of Service: 11/08/19 1345 Report #: [id number] THIS REPORT FOR: cc: MARY DANIELS MD, HEATHER L. MD Blick,Judson Givens MD [facility] ~ THIS REPORT FOR: //name// [facility] ED Test Date: 2019-11-08 Test Time: 13:45:25 Pat Name: REGAN PERALTA Department: Room: Gender: F [employer]: : 1945 Requested By: Ayush Bailey Order Number: [id number] : Judson Hamilton Measurements Intervals [place] Rate: 78 P: -22 FL: 171 QRS: -26 QRSD: 110 T: 215 QT: 478 QTc: 545 Interpretive Statements Sinus rhythm poor r wave progression Abnormal T, consider ischemia, anterior leads Prolonged QT interval No previous ECG available for comparison Electronically Signed On 11-08-2019 16:21:55 [employer] by Judson Hamilton [email or web address] <ELECTRONICALLY SIGNED> By: Judson Hamilton MD, [facility] 11/08/19 1621 1345 1345 Judson Hamilton MD, [facility] /EPI
== END 2019-11-11 14:56 | disposition home health service (06) | DRG 393 ==
LOC: M.ERS 12:04 → M.TBA-ER 17:04 → M.2W 17:04
PROVIDERS: Family Medicine; ADMIT Family Medicine
PROC: 0DB68ZX Excision of Stomach, Via Natural or Artificial Opening Endoscopic, Diagnostic (ICD-10-PCS; principal; 2019-11-10)
DX: K55.039 Acute (reversible) ischemia of large intestine, extent unspecified (principal); E43 Unspecified severe protein-calorie malnutrition; K55.9 Vascular disorder of intestine, unspecified; R13.10 Dysphagia, unspecified; R79.89 Other specified abnormal findings of blood chemistry; I25.10 Atherosclerotic heart disease of native coronary artery without angina pectoris; I10 Essential (primary) hypertension; K29.50 Unspecified chronic gastritis without bleeding; K44.9 Diaphragmatic hernia without obstruction or gangrene; E78.5 Hyperlipidemia, unspecified; D72.829 Elevated white blood cell count, unspecified; I27.20 Pulmonary hypertension, unspecified; E78.00 Pure hypercholesterolemia, unspecified; D64.9 Anemia, unspecified; Z96.651 Presence of right artificial knee joint; M54.9 Dorsalgia, unspecified; G89.29 Other chronic pain; M06.9 Rheumatoid arthritis, unspecified; Z68.31 Body mass index [BMI] 31.0-31.9, adult; Z90.49 Acquired absence of other specified parts of digestive tract; Z95.5 Presence of coronary angioplasty implant and graft; Z90.710 Acquired absence of both cervix and uterus; Z79.82 Long term (current) use of aspirin; Z79.899 Other long term (current) drug therapy; Z82.49 Family history of ischemic heart disease and other diseases of the circulatory system; Z80.8 Family history of malignant neoplasm of other organs or systems; Z83.3 Family history of diabetes mellitus; Z80.3 Family history of malignant neoplasm of breast